=== PATIENT | female | born 1975 ===

== ENCOUNTER 2020-05-02 15:36 | Outpatient (CLI) | payer OTHER | END 2020-05-02 18:00 | disposition home or self-care (01) | LOC: LAB 15:36 | DX: Z20.828 Contact with and (suspected) exposure to other viral communicable diseases (principal) ==

== ENCOUNTER 2020-06-10 09:33 | Outpatient (CLI) | payer OTHER | END 2020-06-10 15:00 | disposition home or self-care (01) | LOC: LAB 09:33 | DX: Z03.818 Encounter for observation for suspected exposure to other biological agents ruled out (principal); Z20.822 Contact with and (suspected) exposure to COVID-19 ==